=== PATIENT | female | born 1985 | race Caucasian/White ===

== ENCOUNTER → 2023-12-06 14:00 | Outpatient (CLI) | payer OTHER, SELFPAY ==
--- NOTE | 2023-12-06 14:04 | DI.US.S_ITS ---
LIMITED ULTRASOUND OF LEFT BREAST: 12/06/2023 CLINICAL: Focal left breast pain. Comparison is made to exam dated: 12/06/2023 mammogram - [facility]. Color flow and real-time ultrasound of the left breast 4 o'clock region were performed. Stokes scale images of the real-time examination were reviewed. Incidental benign dilated ducts are seen. IMPRESSION: BENIGN There is no sonographic evidence of malignancy. There is no abnormality seen in the left breast to correspond with the area of clinical concern, however, clinical correlation and clinical followup are recommended. This exam was interpreted at Station ID: [id number]. Electronically Signed By: Krishna Mehta M.D. lc/:12/06/2023 16:22:06 letter sent: Clinical Evaluation Ultrasound BI-RADS: 2 Benign
--- NOTE | 2023-12-06 14:04 | DI.MG.S_ITS ---
BILATERAL DIGITAL DIAGNOSTIC MAMMOGRAM 3D/2D: 12/06/2023 CLINICAL: Left breast pain. Baseline exam. Strong family History of Breast Cancer. No prior exams were available for comparison. Both breasts are extremely dense, which lowers the sensitivity of mammography (category d />75% glandular tissue). There is a possible asymmetry in the right breast posterior depth lateral region seen on the craniocaudal view only. No other significant masses, calcifications, or other findings are seen in either breast. IMPRESSION: INCOMPLETE: NEEDS ADDITIONAL IMAGING EVALUATION The possible asymmetry in the right breast is indeterminate. An ultrasound is recommended. There is no abnormality seen in the left breast to correspond with the area of clinical concern, however, ultrasound is recommended. Based on Tyrer-Cuzick model (a risk assessment model), the patient's lifetime risk is 25.7% and her 10 year risk is 2.6%. If a patient has an elevated risk, a more comprehensive evaluation should be considered and/or a referral to a genetic counselor. The [employer] [place] [employer], [employer], and NCCN Guidelines advise the consideration of Breast MRI as an adjunct to screening mammography in patients whose Lifetime risk to develop breast cancer is 20% or higher. This exam was interpreted at Station ID: [id number]. NOTE: For mammograms, a report in lay terms will be sent to the patient. Approximately 15% of breast malignancies will not be visualized mammographically. In the management of a palpable breast mass, a negative mammogram must not discourage biopsy of a clinically suspicious lesion. Electronically Signed By: Krishna Mehta M.D. lc/:12/06/2023 16:17:47 ACR BI-RADS Category 0: Incomplete [id number]
--- NOTE | 2023-12-06 15:58 | DI.US.S_ITS ---
LIMITED ULTRASOUND OF RIGHT BREAST: 12/06/2023 CLINICAL: Patient returns today to evaluate a focal asymmetry in the right breast. Comparison is made to exam dated: 12/06/2023 mammogram - [facility]. Color flow and real-time ultrasound of the right breast 9-11 o'clock region were performed. Stokes scale images of the real-time examination were reviewed. Incidental right UOQ benign dilated ducts and small cysts. IMPRESSION: PROBABLY BENIGN There is no abnormality seen in the right breast to correspond with the mammography finding. A follow-up mammogram in 6 months is recommended to demonstrate stability of the questionable mammographic asymmetry. Due to elevated lifetime risk, supplemental breast MRI screening could also be considered. This exam was interpreted at Station ID: [id number]. Electronically Signed By: Krishna Mehta M.D. lc/:12/06/2023 16:20:25 letter sent: Followup Recommended Ultrasound BI-RADS: 3 Probably benign
== END ==
PROVIDERS: Visit Provider Nurse Practitioner Family
DX: R92.2 Inconclusive mammogram (principal); N64.4 Mastodynia; R92.343 Mammographic extreme density, bilateral breasts
CPT/HCPCS: 76642; 77066; G0279

== ENCOUNTER → 2024-04-15 06:47 | Outpatient (CLI) | payer OTHER, SELFPAY ==
--- NOTE | 2024-04-15 06:48 | DI.US.S_ITS ---
PROCEDURE: US ABDOMEN LIMITED INDICATIONS: PELVIC PAIN TECHNIQUE: Real-time scanning was performed of the abdomen with image documentation. COMPARISON: None. FINDINGS: Within the pelvis, there is a scar. However, there is no notable mass or fluid collection within the region of interest. IMPRESSION: Within the pelvis, there is a scar. However there is no notable fluid collection or mass in the area of interest. Dictated by: Cali Epps M.D. on 04/15/2024 at 11:31 Approved by: Cali Epps M.D. on 04/15/2024 at 11:35
== END ==
LOC: US 06:47
PROVIDERS: Referring Provider Nurse Practitioner Family; Visit Provider Nurse Practitioner Family
DX: L90.5 Scar conditions and fibrosis of skin (principal); R10.2 Pelvic and perineal pain; Z87.19 Personal history of other diseases of the digestive system
CPT/HCPCS: 76705

== ENCOUNTER 2024-05-20 08:50 | Emergency (ER) | payer OTHER, SELFPAY ==
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
[2024-05-20 08:58] VITALS: BP 146/67; PULSE 77; RESP 16; TEMP 36.8; O2SAT 99; BMI 31.1
--- NOTE | 2024-05-20 09:01 | DI.RAD.S_ITS ---
PROCEDURE: XR ANKLE RT MIN 3V INDICATIONS: pain/swell lateral malleoli, rolled ankle while kneeling TECHNIQUE: 3 views of the ankle were acquired. COMPARISON: None. FINDINGS: Bones: No fractures or dislocations. Ankle mortise is normally aligned. No suspicious bony lesions. Soft tissues: No tibiotalar joint effusion. Achilles tendon appears normal. IMPRESSION: No acute bony abnormality or significant effusion. Dictated by: Conrado Duke M.D. on 05/20/2024 at 9:37 Approved by: Conrado Duke M.D. on 05/20/2024 at 9:37
--- NOTE | 2024-05-20 18:16 | CM.MNRNOTE ---
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 New prescription will be sent in for patient.
== END 2024-05-20 10:13 | disposition home or self-care (01) ==
PROVIDERS: Emergency Provider Emergency Medicine
DX: S93.401A Sprain of unspecified ligament of right ankle, initial encounter (principal); S96.911A Strain of unspecified muscle and tendon at ankle and foot level, right foot, initial encounter; X50.1XXA Overexertion from prolonged static or awkward postures, initial encounter
CPT/HCPCS: 73610; 99283

== ENCOUNTER → 2024-05-22 17:11 | Outpatient (CLI) | payer OTHER, SELFPAY ==
--- NOTE | 2024-05-22 17:13 | DI.MRI.S_ITS ---
PROCEDURE: MR ANKLE RT WO CON INDICATIONS: INJURY TO RT ANKLE/POSS ACHILLES RUPTURE TECHNIQUE: Noncontrast sagittal T1 spin echo and T2 fast spin echo with fat saturation, axial proton density fast spin echo and T2 fast spin echo with fat saturation, coronal T1 spin echo and T2 fast spin echo with fat saturation through the ankle/hindfoot. COMPARISON: [facility], CR, XR ANKLE RT MIN 3V, 05/20/2024, 9:05. FINDINGS: Image quality: Excellent Tendons: The flexor, and the extensor tendons are unremarkable. Longitudinal split tear of the peroneal brevis. The peroneal longus is unremarkable. Mild tendinosis of the distal Achilles tendon, without tear. Ligaments: Prior sprain of the anterior tibiofibular ligament. The posterior tibiofibular ligament is intact. Prior sprain of the anterior talofibular ligament. The posterior talofibular ligament is intact. The calcaneofibular ligament is intact. The deep portion of the deltoid ligament is intact. Sinus tarsi: No fibrosis Plantar fascia: Unremarkable Muscle: Normal in signal Bones: Normal in signal. Moderate tibiotalar effusion. Moderate amount of fluid within the Gruberi bursa. Moderate posterior subtalar effusion. Marked subcutaneous edema of the lateral ankle. IMPRESSION: 1. Longitudinal split tear of the peroneal brevis. 2. Mild tendinosis of the distal Achilles tendon, without tear. 3. Sprain of the lateral ankle ligaments. 4. Marked subcutaneous edema of the lateral ankle. Dictated by: Sheri Feng M.D. on 05/23/2024 at 10:54 Approved by: Sheri Feng M.D. on 05/23/2024 at 11:01
== END ==
PROVIDERS: Referring Provider Nurse Practitioner Family; Visit Provider Nurse Practitioner Family
DX: S86.311A Strain of muscle(s) and tendon(s) of peroneal muscle group at lower leg level, right leg, initial encounter (principal); S93.431A Sprain of tibiofibular ligament of right ankle, initial encounter; S93.491A Sprain of other ligament of right ankle, initial encounter; R60.0 Localized edema; M25.471 Effusion, right ankle; X58.XXXA Exposure to other specified factors, initial encounter
CPT/HCPCS: 73721

== ENCOUNTER → 2024-10-09 09:00 | Outpatient (CLI) | payer OTHER, SELFPAY ==
--- NOTE | 2024-10-09 | DI.MG.S_ITS ---
BILATERAL DIGITAL DIAGNOSTIC MAMMOGRAM 3D/2D: 10/09/2024 CLINICAL: Short term follow up of the right breast, due for bilateral imaging. Comparison is made to exam dated: 12/06/2023 mammogram - [facility]. The breasts are extremely dense, which lowers the sensitivity of mammography (category d />75% glandular tissue). Redemonstration of previously described possible asymmetry in the right breast middle depth lateral region seen on the craniocaudal view only. This is not significantly changed and was not seen on the prior ultrasound. No other significant masses, calcifications, or other findings are seen in either breast. IMPRESSION: PROBABLY BENIGN The possible asymmetry in the right breast is probably benign. A follow-up right mammogram with possible right ultrasound in 6 months is recommended to demonstrate stability. Additionally, patient has an elevated lifetime risk for breast cancer of greater than 20%. Recommend consideration for screening breast MRI as an adjunct to screening mammography. Findings and recommendations were conveyed to the patient during today's evaluation. Based on Tyrer-Cuzick model (a risk assessment model), the patient's lifetime risk is 25.8% and her 10 year risk is 2.9%. If a patient has an elevated risk, a more comprehensive evaluation should be considered and/or a referral to a genetic counselor. The [employer], [employer], and NCCN Guidelines advise the consideration of Breast MRI as an adjunct to screening mammography in patients whose Lifetime risk to develop breast cancer is 20% or higher. This exam was interpreted at Station ID: [id number]. NOTE: For mammograms, a report in lay terms will be sent to the patient. Approximately 15% of breast malignancies will not be visualized mammographically. In the management of a palpable breast mass, a negative mammogram must not discourage biopsy of a clinically suspicious lesion. Electronically Signed By: Jay Gray M.D. aty/:10/09/2024 11:40:58 letter sent: Followup Recommended ACR BI-RADS Category 3: Probably Benign
== END ==
PROVIDERS: PCP Nurse Practitioner Family; Referring Provider Nurse Practitioner Family; Visit Provider Nurse Practitioner Family
DX: R92.2 Inconclusive mammogram (principal); N64.4 Mastodynia; R92.343 Mammographic extreme density, bilateral breasts
CPT/HCPCS: 77066; G0279

== ENCOUNTER 2025-01-09 10:44 | Emergency (ER) | payer OTHER, SELFPAY ==
[2025-01-09] VITALS (9 sets, daily range): BP systolic 120–150; BP diastolic 72–92; PULSE 70–78; RESP 14–22; TEMP 36.9; O2SAT 97–99; BMI 31.1
--- NOTE | 2025-01-09 10:51 | EKG_ITS ---
[address] [id number] [address] [address] Test Date: 2025-01-09 Pat Name: Marilyn Mcgregor Department: Room: Gender: Female Clinical Technologist: TAWANDA : 1985 Requested By: Order Number: [id number] Reading MD: Carson Boland MD Measurements Intervals [place] Rate: 72 P: 61 MD: 136 QRS: 65 QRSD: 78 T: 45 QT: 398 QTc: 435 Interpretive Statements Normal sinus rhythm Electronically Signed On 01-09-2025 16:44:02 PDT by Carson Boland MD
--- NOTE | 2025-01-09 10:51 | DI.RAD.S_ITS ---
PROCEDURE: XR CHEST 1V INDICATIONS: chest pain TECHNIQUE: One view of the chest was acquired. COMPARISON: None. FINDINGS: Surgical changes and devices: None. Lungs and pleura: Lungs are clear. No pleural effusions or pneumothorax. Mediastinum: Mediastinal contours appear normal. Heart size is normal. Bones and chest wall: No suspicious bony lesions. Overlying soft tissues appear unremarkable. IMPRESSION: No acute cardiopulmonary abnormality is seen. Approved by: Felix Marcial M.D. on 01/09/2025 at 11:42
[2025-01-09 11:31] LABS: Add Manual Diff / Slide Review NO; Basophils Absolute Auto 100 /uL (0-100); Basophils Percent Auto 1.1 % (0-2); Eosinophils Absolute Auto 200 /uL (0-450); Eosinophils Percent Auto 2.6 % (2-4); Hematocrit 37.4 % (36-46); Hemoglobin 13.1 g/dL (12.0-16.0); Lymphocytes Absolute Auto 1800 /uL (1100-4500); Lymphocytes Percent Auto 24.5 % (25-40); Mean Corpuscular HGB Conc 35.1 % (30-36); Mean Corpuscular Hemoglobin 30.6 PG (26-34); Mean Corpuscular Volume 87.1 fL (80-100); Monocytes Absolute Auto 500 /uL (0-900); Monocytes Percent Auto 6.3 % (3-14); Neutrophils Absolute Auto 4900 /uL (1500-7000); Neutrophils Percent Auto 65.5 % (50-75); Platelet Count 283 X10^3/uL (150-400); Red Blood Cell Count 4.29 X10^6/uL (4.0-5.2); Red Cell Distribution Width 12.7 % (11.6-14.8); White Blood Cell Count 7.5 X10^3/uL (4.5-11.0)
[2025-01-09 11:33] LABS: INR 1.1 (0.9-1.3)
[2025-01-09 11:36] LABS: PTT Partial Thromboplastin Tim 38 SECONDS (25.1-36.5)
[2025-01-09 11:38] LABS: Alanine Aminotransferase 18 IU/L (<35); Albumin 4.5 g/dL (3.5-5.0); Albumin Globulin Ratio 1.5 (1.0-2.8); Alkaline Phosphatase 69 U/L (38-126); Aspartate Aminotransferase 25 IU/L (14-36); BUN Creatinine Ratio 25.4 (6-22); Bilirubin Total 0.6 mg/dL (0.2-1.3); Blood Urea Nitrogen 16 mg/dL (7-17); Calcium 8.9 mg/dL (8.4-10.2); Carbon Dioxide 24 mmol/L (22-32); Chloride 103 mmol/L (98-107); Creatine Kinase 77 U/L (30-135); Estimated Glomerular Filt Rate > 60 mL/min (>60); Globulin 3.1 g/dL (1.7-4.1); Glucose 96 mg/dL (70-99); HEMOLYSIS < 15 (0-50); Lipase 89 U/L (23-300); Sodium 135 mmol/L (137-145); Total Protein 7.6 g/dL (6.3-8.2)
--- NOTE | 2025-01-09 11:41 | ED_ITS ---
HPI - Chest Pain General Chief Complaint: Chest Pain Stated Complaint: Chest pain Time Seen by Provider: 01/09/25 11:34 Source: patient Mode of arrival: Ambulatory Limitations: no limitations History of Present Illness HPI narrative: Patient here for reproducible right-sided chest tightness radiating to right clavicle and left clavicle. Has had palpitations through the night as well. Symptoms started around 8:00 a.m. last night. Patient admits does have history of anxiety and anxiety attacks and similar features. Denies any history hypertension hyperlipidemia smoking. Patient denies any long travel recent travel. No siblings or parents with coronary artery disease. Patient in no distress. No recent exertional chest pain shortness of breath or fatigue. No new stressors in life. Patient in no distress at this time. Patient has heart score of 0 Related Data Previous Rx's Medication Instructions Recorded hydrocodone 5 mg-acetaminophen 325 1 tab PO QID PRN pain #10 tabs 05/20/24 mg tablet Allergies Allergy/AdvReac Type Severity Reaction Status Date / Time lamotrigine [From Lamictal] Allergy Verified 01/09/25 10:54 NSAIDS (Non-Steroidal Allergy Verified 01/09/25 10:54 Anti-Inflamma Quinolones Allergy Verified 01/09/25 10:54 Sulfa (Sulfonamide Allergy Verified 01/09/25 10:54 Antibiotics) Review of Systems Review of Systems Narrative: GENERAL: Negative chills, fatigue, malaise, fever, sweats. HEENT: Negative sinus pain, ear pain, sore throat RESPIRATORY: Negative dyspnea, cough CARDIOVASCULAR: Positive chest pain, palpitations GASTROINTESTINAL: Negative vomiting, nausea, abdominal pain : Negative dysuria, frequency, hematuria MUSCULOSKELETAL: Negative muscle or bony pain SKIN: Negative rash, skin lesions NEUROLOGIC: Negative weakness, numbness Psych: Positive anxiety ROS Unobtainable: All systems reviewed & are unremarkable except as noted in HPI and below Patient History Social History Smoking Status: Unknown if ever smoked Smoking Status: Unknown if ever smoked Exam Narrative Exam Narrative: GENERAL: in no distress, not toxic not dyspneic HEAD: Normocephalic. EYES: Pupils equal round ENT: Mucous membranes moist. NECK: Trachea midline. CARDIOVASCULAR: Regular rate and rhythm RESPIRATORY: Clear to auscultation. Breath sounds equal bilaterally. No wheezes, rales, or rhonchi. Feels discomfort with deep breath on right side chest. GASTROINTESTINAL: Abdomen soft, non-tender EXTREMITIES: No gross deformities. BACK: No flank tenderness. NEURO: AOx4. Clear speech SKIN: Warm and dry PSYCH: Patient is slightly anxious, is cooperative Initial Vital Signs Initial Vital Signs: Vital Signs Temperature 98.4 F 01/09/25 10:46 Pulse Rate 78 01/09/25 10:46 Respiratory Rate 14 01/09/25 10:46 Blood Pressure 150/92 H 01/09/25 10:46 Pulse Oximetry 97 01/09/25 10:46 Oxygen Delivery Method Room Air 01/09/25 10:46 Scores HEART Score Heart Score history: Slightly Suspicious Heart Score EKG: Normal Heart Score Age: < 45 years old Heart Score risk factors: No known risk factors Heart Score troponin: < or = to normal limit Heart Score Total: 0 Course Orders Ordered: ED Orders 01/09/25 10:51 XR chest 1V Stat EKG-12 Lead Stat 01/09/25 11:15 Complete Blood Count AUTO DIFF Stat Comprehensive Metabolic Panel Stat D Dimer Stat Lipase Stat Magnesium Stat NT-proBNP (BNP-Adult 18+) Stat PTT Partial Thromboplastin Alfredo Stat Prothrombin Time INR Stat Troponin & CK Cardiac Panel Stat 01/09/25 13:08 Troponin & CK Cardiac Panel Stat Vital Signs Vital signs: Vital Signs - 8 hr 01/09/25 10:46 01/09/25 10:50 01/09/25 10:50 Temperature 98.4 F Pulse Rate 78 72 Respiratory Rate 14 Blood Pressure 150/92 H 150/92 H Pulse Oximetry 97 97 Oxygen Delivery Method Room Air 01/09/25 11:05 01/09/25 11:06 01/09/25 11:06 Temperature Pulse Rate 73 71 Respiratory Rate 17 Blood Pressure 129/86 Pulse Oximetry 98 99 Oxygen Delivery Method 01/09/25 11:30 01/09/25 11:30 01/09/25 12:00 Temperature Pulse Rate 70 71 Respiratory Rate 15 21 Blood Pressure 120/72 Pulse Oximetry 98 98 Oxygen Delivery Method 01/09/25 12:00 01/09/25 12:30 01/09/25 12:30 Temperature Pulse Rate 78 Respiratory Rate Blood Pressure 121/82 131/87 Pulse Oximetry 99 Oxygen Delivery Method Room Air MDM - Chest Pain Lab Data 01/09/25 11:15 01/09/25 11:15 Labs: Lab Results 01/09/25 01/09/25 Range/Units 11:15 13:08 WBC 7.5 (4.5-11.0) X10^3/uL RBC 4.29 (4.0-5.2) X10^6/uL Hgb 13.1 (12.0-16.0) g/dL Hct 37.4 (36-46) % MCV 87.1 (80-100) fL MCH 30.6 (26-34) PG MCHC 35.1 (30-36) % RDW 12.7 (11.6-14.8) % Plt Count 283 (150-400) X10^3/uL Neut % (Auto) 65.5 (50-75) % Lymph % (Auto) 24.5 L (25-40) % Craig % (Auto) 6.3 (3-14) % Eos % (Auto) 2.6 (2-4) % Baso % (Auto) 1.1 (0-2) % Neut # (Auto) 4900 (2147-6388) /uL Lymph # (Auto) 1800 (1423-7037) /uL Craig # (Auto) 500 (0-900) /uL Eos # (Auto) 200 (0-450) /uL Baso # (Auto) 100 (0-100) /uL PT 12.0 (9.4-12.5) SECONDS INR 1.1 (0.9-1.3) APTT 38 H (25.1-36.5) SECONDS D-Dimer < 215 (<500) ng/ml Sodium 135 L (137-145) mmol/L Potassium 4.0 (3.4-5.1) mmol/L Chloride 103 (98-107) mmol/L Carbon Dioxide 24 (22-32) mmol/L BUN 16 (7-17) mg/dL Creatinine 0.63 (0.52-1.04) mg/dL Estimated GFR > 60 (>60) mL/min BUN/Creatinine Ratio 25.4 H (6-22) Glucose 96 (70-99) mg/dL Calcium 8.9 (8.4-10.2) mg/dL Magnesium 2.0 (1.6-2.3) mg/dL Total Bilirubin 0.6 (0.2-1.3) mg/dL AST 25 (14-36) IU/L ALT 18 (<35) IU/L Alkaline Phosphatase 69 (38-126) U/L Total Creatine Kinase 77 69 (30-135) U/L Troponin I < 0.012 < 0.012 (0.01-0.034) ng/mL NT-Pro-B Natriuret Pep < 20 (<125) pg/mL Total Protein 7.6 (6.3-8.2) g/dL Albumin 4.5 (3.5-5.0) g/dL Globulin 3.1 (1.7-4.1) g/dL Albumin/Globulin Ratio 1.5 (1.0-2.8) Lipase 89 (23-300) U/L Imaging Data Chest x-ray: Radiologist's Impression: [address] [address] XRay Report Signed Patient: Marilyn Mcgregor MR#: [id number] : 1985 Acct:[id number] Age/Sex: 40 / F Date of Service: 01/09/25 Loc: ED Accession Number: [id number] Procedure: XR chest 1V Ordering Provider: Alek Gordon MD PROCEDURE: XR CHEST 1V INDICATIONS: chest pain TECHNIQUE: One view of the chest was acquired. COMPARISON: None. FINDINGS: Surgical changes and devices: None. Lungs and pleura: Lungs are clear. No pleural effusions or pneumothorax. Mediastinum: Mediastinal contours appear normal. Heart size is normal. Bones and chest wall: No suspicious bony lesions. Overlying soft tissues appear unremarkable. IMPRESSION: No acute cardiopulmonary abnormality is seen. Approved by: Felix Marcial M.D. on 01/09/2025 at 11:42 MDM Narrative Medical decision making narrative: Patient here for reproducible right-sided chest tightness radiating to right clavicle and left clavicle. Has had palpitations through the night as well. Symptoms started around 8:00 a.m. last night. Patient admits does have history of anxiety and anxiety attacks and similar features. Denies any history hypertension hyperlipidemia smoking. Patient denies any long travel recent travel. No siblings or parents with coronary artery disease. Patient in no distress. No recent exertional chest pain shortness of breath or fatigue. No new stressors in life. Patient in no distress at this time. Patient has heart score of 0 After history and exam, CBC CMP troponin x2 chest x-ray D-dimer EKG, patient denies and does not want a test. [facility] Medical records reviewed: No recent visit for this complaint Differential considered: Includes but not limited to anxiety costochondritis palpitations arrhythmia SVT PVC STEMI non-STEMI pulmonary embolism pneumonia costochondritis pleurisy Lab Test results independently reviewed as above. Pertinent findings: WBC 7.5 hemoglobin 13.1 sodium 135 potassium 4.0 INR 1.1 troponin less than 0.012 x2 D- dimer less than 215 Independently reviewed EKG normal EKG normal sinus rhythm rate 72 Imaging studies independently reviewed: Chest x-ray no acute finding Consultations: None indicated at this time. Re-evaluations: 1:45 p.m.. Patient doing well. No symptoms during course of stay. Feeling much better. Reviewed results with her. They are reassuring. Will need follow up with primary care for Holter monitor or Zio patch and re- evaluation for anxiety. She desires discharge home. Work note provided. She understands no new medications indicated at this time. Discussion: Appropriate for discharge home. Exam is reassuring. Return precautions reviewed. Nontoxic at discharge. Two troponins were done. D-dimer is negative. This is likely anxiety with palpitations. Reviewed with patient anxiety can occur without any stressors. Return precautions reviewed. She desires discharge home Diagnosis: Anxiety/palpitations Discharge Plan Departure Patient Disposition: Home Clinical Impression: Atypical chest pain, Anxiety Instructions: DI for Atypical Chest Pain, DI for Anxiety -- Adult Activity Restrictions/Additional Instructions: Your exam and laboratory studies and imaging studies and EKG are reassuring. This may be anxiety related. However you will need to see your family doctor for Holter monitor or Zio patch regarding her palpitations. Keep well hydrated. Return if worse if any questions or concerns. Continue any home medications. See your family doctor next week for re-evaluation. Work note has been provided for you. Prescriptions: No Action hydrocodone-acetaminophen 5-325 mg tablet 1 tab PO QID PRN (Reason: pain) Qty: 10 0RF Referrals: Luiza Kwok FNP-C [Primary Care Provider] - Stand Alone Forms: Patient Portal/API/Survey, Work Release Note
[2025-01-09 11:49] LABS: NT-proBNP (BNP-Adult 18+) < 20 pg/mL (<125); Troponin I < 0.012 ng/mL (0.01-0.034)
[2025-01-09 11:58] LABS: D Dimer < 215 ng/ml (<500)
[2025-01-09 13:24] LABS: Creatine Kinase 69 U/L (30-135)
[2025-01-09 13:36] LABS: Troponin I < 0.012 ng/mL (0.01-0.034)
== END 2025-01-09 13:55 | disposition home or self-care (01) ==
PROVIDERS: Emergency Provider Emergency Medicine; PCP Nurse Practitioner Family
DX: R07.89 Other chest pain (principal); F41.9 Anxiety disorder, unspecified; R00.2 Palpitations
CPT/HCPCS: 36415; 71045; 80053; 82550; 83690; 83735; 83880; 84484; 85025; 85379; 85610; 85730; 93005; 93010; 99283; 99284

== ENCOUNTER → 2025-08-28 11:53 | Outpatient (CLI) | payer OTHER, SELFPAY ==
[2025-08-29 14:11] LABS: Trichomoas vaginalis Negative (Negative)
== END ==
PROVIDERS: PCP Nurse Practitioner Family; Visit Provider Obstetrics & Gynecology
DX: R30.0 Dysuria (principal); N89.8 Other specified noninflammatory disorders of vagina
CPT/HCPCS: 81514; 87086

== ENCOUNTER → 2025-09-11 06:34 | Outpatient (CLI) | payer OTHER, SELFPAY ==
--- NOTE | 2025-09-11 06:36 | DI.CT.S_ITS ---
PROCEDURE: CT IVP A/P W/WO INDICATIONS: cyclical hematuria- evaluate for bladder endometriosis TECHNIQUE: Optional 5 mm thick noncontrast images acquired from the diaphragm to the symphysis pubis. After the administration of intravenous contrast, 5 mm thick images acquired from the diaphragm to the symphysis pubis after a 10-minute delay. 2 mm thick coronal and sagittal reformats were then performed of the kidneys and ureters. For radiation dose reduction, the following was used: automated exposure control, adjustment of mA and/or kV according to patient size. COMPARISON: [facility], US, US PELVIC COMPLETE, 08/28/2025, 12:25. FINDINGS: Image quality: Diagnostic Lower chest: Basal atelectasis. Normal heart size. Liver: Mild steatosis suspected. Unremarkable otherwise Gallbladder and biliary system: Unremarkable, nondilated Pancreas: No ductal dilation Spleen: Prominent, at 12 cm Adrenals: No discrete nodules Kidneys: 6 mm left mid region nonobstructing calculus. No enhancing renal mass. No hydronephrosis. No obstructing ureter lesion identified. Vessels and lymph nodes: Main portal vein is patent. No abdominal aortic aneurysm. No enlarged lymph nodes by size criteria Bowel and peritoneum: No bowel obstruction. Small amount pelvic ascites likely physiologic. Nondilated appendix. Body wall: Unremarkable Pelvis: No calcified bladder stone. No definite bladder filling defects. No focal area of wall thickening Thick walled 2.2cm right ovarian cyst. Small hypoattenuating uterine finding anteriorly, possibly a fibroid. Bones: No aggressive appearing osseous abnormality. Degenerative changes are seen. IMPRESSION: 6 mm left lower pole nonobstructing calculus. No solid renal mass. Lower tracts can be better assessed with cystoscopy. Thick walled 2.2cm right ovarian cyst, indeterminate, possibly corpus luteum. Pelvic MRI also suggested for endometriosis evaluation. Other findings above. Dictated by: Krishna Mehta M.D. on 09/11/2025 at 8:59 Approved by: Krishna Mehta M.D. on 09/11/2025 at 9:12
--- NOTE | 2025-09-11 09:18 | DI.MRI.S_ITS ---
PROCEDURE: MR PELVIS WO CON INDICATIONS: cyclical hematuria- evaluate for bladder endometriosis TECHNIQUE: Pelvis MRI images were obtained without contrast. Patient did not complete protocol due to claustrophobia. COMPARISON: [facility], US, US PELVIC COMPLETE, 08/28/2025, 12:25. [facility], CT, CT IVP A/P W/WO, 09/11/2025, 8:09. FINDINGS: Image quality: Incomplete protocol Lower abdomen: Small volume pelvic free fluid, probably physiologic. Bladder: Under distended, unremarkable Reproductive organs: A 1.3 cm fluid-filled region is seen in the anterior junctional zone, with intrinsic T1 signal. The anterior junctional zone is thickened, measuring 1.9 cm. Cervical nabothian cysts are seen. Possible defect Endometrium measures 1.2 cm. Multiple follicles are seen bilaterally in the ovaries no definite endometrioma is identified Thick walled cyst measuring 1.6 cm is seen in the right ovary. Rectum: Unremarkable Vessels and lymph nodes: No enlarged lymph nodes by size criteria within the field of view. No aneurysmal vessel identified Pelvic wall: Unremarkable Bones: Unremarkable IMPRESSION: Limited evaluation. Patient did not complete imaging protocol. On these limited images, there is focal thickening of the anterior junctional zone, with internal cystic change that has hemorrhagic components. This could represent an adenomyoma versus an intramural fibroid with cystic degeneration. Possible defect. Endometrium measures 1.2 cm which is the upper limit of normal. No definite endometrioma is identified. No large bladder mass. Thick walled cyst is seen in the right ovary measuring 1.6 cm possibly involuting cyst/corpus luteum, but incompletely assessed on this study. Consider repeat attempt with sedation. Dictated by: Krishna Mehta M.D. on 09/11/2025 at 10:56 Approved by: Krishna Mehta M.D. on 09/11/2025 at 11:03
== END ==
PROVIDERS: Referring Provider Obstetrics & Gynecology; Visit Provider Obstetrics & Gynecology
DX: N80.9 Endometriosis, unspecified (principal); R31.0 Gross hematuria; N94.5 Secondary dysmenorrhea; R10.20 Pelvic and perineal pain unspecified side; G89.29 Other chronic pain; N20.0 Calculus of kidney; N83.201 Unspecified ovarian cyst, right side
CPT/HCPCS: 72195; 74178; Q9967